=== PATIENT | female | born 1995 | race African-American/Black ===

== ENCOUNTER 2020-11-17 12:53 | Emergency (ER) | payer MEDICAID ==
[~2020-11-17] VITALS: Ht 152.4 cm; Wt 49.9 kg
[2020-11-17 12:58] VITALS: BP 112/50
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
[2020-11-17] MEDS ORDERED: BACITRACIN ZINC OINT PACKET 1 EA PACKET TP ONE (13:08)
[2020-11-17] MEDS ORDERED: NEOM28.43 TP (13:09)
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
--- NOTE | 2020-11-17 13:28 | NUR ---
Patient discharged to home in stable condition. Written and verbal after care instructions given. Patient verbalizes understanding of instruction.
== END 2020-11-17 13:29 | disposition home or self-care (01) ==
LOC: ER 13:22
DX: T23.201A Burn of second degree of right hand, unspecified site, initial encounter (principal); Z79.899 Other long term (current) drug therapy; X10.2XXA Contact with fats and cooking oils, initial encounter; Y93.89 Activity, other specified; Y92.89 Other specified places as the place of occurrence of the external cause; Y99.8 Other external cause status